=== PATIENT | male | born 1975 | race Caucasian/White ===

== ENCOUNTER 2017-10-13 04:35 | Emergency (ER) | payer OTHER ==
[2017-10-13] MEDS ORDERED: Bacitracin Oint 1 GM U/D Packet TOP ONE (04:56)
[2017-10-13] MEDS ORDERED: Diphtheria,Pertussis(Acell),Tetanus Vaccine 0.5 ML Syringe IM ONE (04:58)
[2017-10-13] MEDS ORDERED: Bacitracin Oint 28.35 GM Tube TOP SCH (05:00)
[2017-10-13] MEDS ORDERED: Lidocaine 1% 20 ML MDV ONE (05:27)
[2017-10-13] MEDS ORDERED: Lidocaine 1% 20 ML MDV INJECT ONE (05:29)
--- NOTE | 2017-10-13 05:47 | EDM.PDOC ---
ED HPI GENERAL MEDICAL PROBLEM - General Chief Complaint: Laceration Stated Complaint: CUT ON RIGHT FINGER Time Seen by Provider: 10/13/17 05:41 - History of Present Illness INITIAL COMMENTS - FREE TEXT/NARRATIVE: HISTORY AND PHYSICAL: History of present illness: Patient 41-year-old male presents with concern of avulsion injury to the second digit of his right hand has occurred when he was cutting cheese today. Patient denies up-to-date tetanus Review of systems: As per history of present illness and below otherwise all systems reviewed and negative. Past medical history: As per history of present illness and as reviewed below otherwise noncontributory. Surgical history: As per history of present illness and as reviewed below otherwise noncontributory. Social history: No reported history of drug or alcohol abuse. Family history: As per history of present illness and as reviewed below otherwise noncontributory. Physical exam: HEENT: Atraumatic, normocephalic, pupils reactive, negative for conjunctival pallor or scleral icterus, mucous membranes moist, throat clear, neck supple, nontender, trachea midline. Lungs: Clear to auscultation, breath sounds equal bilaterally, chest nontender. Heart: S1S2, regular, negative for clicks, rubs, or JVD. Abdomen: Soft, nondistended, nontender. Negative for masses or hepatosplenomegaly. Negative for costovertebral tenderness. Pelvis: Stable nontender. Genitourinary: Deferred. Rectal: Deferred. Extremities: Patient has a fairly generous approximately 2 x 3 cm avulsion injury of moderate depth to the volar aspect of the second digit of his right hand neurovascular exam is unremarkable there is relatively significant oozing bleeding from this. Neuro: Awake, alert, oriented. Cranial nerves II through XII unremarkable. Cerebellum unremarkable. Motor and sensory unremarkable throughout. Exam nonfocal. Diagnostics: X-ray right hand second digit Therapeutics: Patient was anesthetized with 1% lidocaine via digital block this was without epinephrine after his irrigated prepped and draped in sterile manner single [id number] stitch was put in with 5-0 absorbable suture for hemostatic purposes Gelfoam was applied as was a occlusive dressing Impression: #1 avulsion injury second digit right hand Definitive disposition and diagnosis as appropriate pending reevaluation and review of above. right index finger Pain Score (Numeric/FACES): 10 - Related Data Allergies Allergy/AdvReac Type Severity Reaction Status Date / Time No Known Allergies Allergy Verified 10/13/17 04:41 Home Meds: Home Meds Albuterol [Proventil HFA] 1 puff INH QID PRN 10/13/17 [History] Past Medical History - Past Health History Medical/Surgical History: Denies Medical/Surgical History Respiratory History: Reports: Asthma - Past Surgical History Musculoskeletal Surgical History: Reports: Other (See Below) Other Musculoskeletal Surgeries/Procedures:: L5 sx Social & Family History - Family History Family Medical History: Noncontributory - Tobacco Use Smoking Status *Q: Current Every Day Smoker Years of Tobacco use: 15 Packs/Tins Daily: 1 - Recreational Drug Use Recreational Drug Use: Yes Drug Use in Last 12 Months: Yes Recreational Drug Type: Reports: Marijuana/Hashish ED ROS GENERAL - Review of Systems Review Of Systems: ROS reveals no pertinent complaints other than HPI. ED EXAM, SKIN/RASH Exam: See Below (See dictation) Course - Vital Signs Last Recorded V/S: Last Vital Signs Temp 36.6 C 10/13/17 04:35 Pulse 112 H 10/13/17 04:35 Resp 18 10/13/17 04:35 BP 142/99 H 10/13/17 04:35 Pulse Ox 95 10/13/17 04:35 - Orders/Labs/Meds Orders: Active Orders 24 hr Category Date Time Status Vaccines to be Administered [RC] PER UNIT ROUTINE Care 10/13/17 04:59 Active Fingers Second Digit Rt F6 [CR] Stat Exams 10/13/17 04:55 Taken Meds: Medications Discontinued Medications Generic Name Dose Route Start Last Admin Trade Name Rashardq PRN Reason Stop Dose Admin Bacitracin 1 dose 10/13/17 04:56 Bacitracin Oint 1 Gm TOP 10/13/17 04:57 ONETIME ONE Bacitracin 1 gm 10/13/17 05:00 Bacitracin Oint TOP STAT PATRICIA Diphtheria/Tetanus/Acell Pertussis 0.5 ml 10/13/17 04:58 10/13/17 05:38 Adacel IM 10/13/17 04:59 0.5 ml .ONCE ONE Administration Lidocaine HCl 20 ml 10/13/17 05:29 10/13/17 05:38 Xylocaine 1% INJECT 10/13/17 05:30 20 ml ONETIME ONE Administration Lidocaine HCl Confirm 10/13/17 05:27 Xylocaine 1% Administered 10/13/17 05:28 Dose 20 ml .ROUTE .STK-MED ONE Departure - Departure Time of Disposition: 05:45 Disposition: Home, Self-Care 01 Condition: Good Clinical Impression: Avulsion injury - Discharge Information Referrals: PCP,None [Primary Care Provider] - Additional Instructions: The following information is given to patients seen in the emergency department who are being discharged to home. This information is to outline your options for follow-up care. We provide all patients seen in our emergency department with a follow-up referral. The need for follow-up, as well as the timing and circumstances, are variable depending upon the specifics of your emergency department visit. If you don't have a primary care physician on staff, we will provide you with a referral. We always advise you to contact your personal physician following an emergency department visit to inform them of the circumstance of the visit and for follow-up with them and/or the need for any referrals to a consulting specialist. The emergency department will also refer you to a specialist when appropriate. This referral assures that you have the opportunity for followup care with a specialist. All of these measure are taken in an effort to provide you with optimal care, which includes your followup. Under all circumstances we always encourage you to contact your private physician who remains a resource for coordinating your care. When calling for followup care, please make the office aware that this follow-up is from your recent emergency room visit. If for any reason you are refused follow-up, please contact the [facility] emergency department at and asked to speak to the emergency department charge nurse. [facility] specialty clinic-Plastics [address] [place] [address] [id number] Follow-up hand surgery above call to schedule appointment keep dressing in place until follow-up with hand surgery return as needed as discussed Flex as prescribed - My Orders Last 24 Hours: My Active Orders 10/13/17 04:55 Fingers Second Digit Rt F6 [CR] Stat 10/13/17 04:59 Vaccines to be Administered [RC] PER UNIT ROUTINE - Assessment/Plan Last 24 Hours: My Active Orders 10/13/17 04:55 Fingers Second Digit Rt F6 [CR] Stat 10/13/17 04:59 Vaccines to be Administered [RC] PER UNIT ROUTINE
--- NOTE | 2017-10-13 14:35 | CR ---
EXAM DATE: 10/13/17 PATIENT'S AGE: 41 Patient: YASMEEN RDZ Facility: [place], [place] Site . Site : 1975 Study: XRay Extremity Right [id number]/21/2018 5:10:49 AM Ordering Physician: Doctor Marshall Final Report: INDICATION: Laceration distal 2nd digit TECHNIQUE: Three views 2nd digit right hand COMPARISON: None FINDINGS: Bones: Alignment is normal. No fractures or bone lesions. Joint spaces: Unremarkable. Soft tissues: Soft tissue amputation adjacent to the distal tuft. IMPRESSION: Soft tissue amputation adjacent to the distal tuft 2nd digit right hand. Dictated by Jorge Du MD @ 10/13/2017 5:18:22 AM Dictated by: Jorge Du MD @ 10/13/2017 05:18:31 (Electronic Signature) Report Signed by Proxy. SUBHA
== END 2017-10-13 06:10 | disposition home or self-care (01) ==
LOC: MW.ED 04:35
DX: S61.200A Unspecified open wound of right index finger without damage to nail, initial encounter (principal); F17.210 Nicotine dependence, cigarettes, uncomplicated; Z23 Encounter for immunization; W26.9XXA Contact with unspecified sharp object(s), initial encounter
CPT/HCPCS: 12001; 73140-26-F6; 73140-F6; 90471; 90715; 99282; 99283-25

== ENCOUNTER 2020-03-15 23:58 | Emergency (ER) | payer SELFPAY ==
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
== END 2020-03-16 00:31 ==
LOC: MW.ED 23:58
DX: S00.83XA Contusion of other part of head, initial encounter (principal); W22.8XXA Striking against or struck by other objects, initial encounter
CPT/HCPCS: 99282; 99284